=== PATIENT | female | born 1950 | race Caucasian/White ===

== ENCOUNTER 2016-04-21 17:01 | Observation (INO) | payer MEDICARE, OTHER ==
[2016-04-21] MEDS ORDERED: TYLENOL 325 MG PO PRN (17:28)
[2016-04-21] MEDS ORDERED: Phenergan 25 MG INJ IV PRN (17:29)
[2016-04-21] MEDS ORDERED: Colace 100 MG PO PRN (17:30)
[2016-04-21 18:35] LABS: BASOPHIL % 0.1 % (0.0-0.4); Eosinophil % 2.1 % (0.00-5.0); Granulocytes % 61.2 % (36.0-66.0); Lymphocytes % 25.9 % (24.0-44.0); Mean Cell Volume 88.2 fl (78-100); Mean Corpuscular Hemoglobin 29.3 pg (26-32); Mean Platelet Volume 12.5 fl (6-9.5); Monocytes % 10.7 % (0.0-12.0); Platelet Count 126 K/mm3 (150-450); Red Blood Count 4.57 M/mm3 (4.1-5.4); Red Cell Distribution Width 13.1 % (11.5-14.0); White Blood Count 6.7 K/mm3 (4.0-10.5)
[2016-04-21 18:48] LABS: ALBUMIN 3.9 g/dL (3.4-5.0); ALKALINE PHOSPHATASE 83 U/L (46-116); ANION GAP 8.9 MEQ/L (5-15); BILIRUBIN,TOTAL 0.5 mg/dL (0.2-1.0); BLOOD UREA NITROGEN 21 mg/dL (9-20); CHLORIDE 104 mEq/L (98-107); Carbon Dioxide 32.5 mEq/L (21-32); Glucose 97 MG/DL (70-110); SGOT/AST 15 U/L (15-37); SGPT/ALT 16 U/L (12-78); SODIUM 141 mEq/L (136-145); Total Protein 7.3 gm/dL (6.4-8.2)
[2016-04-21 18:50] LABS: TROPONIN < 0.017 ng/ml (0.000-0.056)
--- NOTE | 2016-04-21 20:03 | XRAY ---
Indication: General weakness. Irregular heartbeat. Comparison: November 07, 2007 PA/lateral chest remains clear. Heart and mediastinal structures stable and within normal limits. Bony thorax intact again with osteopenia. Impression: Stable nonacute chest.
[2016-04-21] MEDS: Sodium Chloride 0.9% 1000 ML 1,000 ML IV SCH (21:25)
[2016-04-21] MEDS ORDERED: Zocor 10MG PO SCH (22:00)
[2016-04-21] MEDS ORDERED: DESYREL 50 MG PO SCH (22:00)
[2016-04-22 04:54] LABS: Collection Type CLEAN CATCH
[2016-04-22 04:55] LABS: COMPLETE URINE MICROSCOPIC? NO; Ph 5.5 (5-6)
[2016-04-22] MEDS: Sodium Chloride 0.9% 1000 ML 1,000 ML IV SCH (06:54)
[2016-04-22] MEDS ORDERED: FLUZONE HIGH-DOSE 2016-17 SYR IM ONE (10:00)
[2016-04-22 12:34] VITALS: BP 116/59; PULSE 60; O2SAT 97
[2016-04-22] MEDS ORDERED: PREVNAR 13 SYRINGE IM ONE (14:00)
--- NOTE | 2016-04-22 14:34 | PCM.DCORD ---
- Discharge Discharge Date: 04/22/16 Disposition: Home, Self-Care Condition: Fair Prescriptions: Amox Tr/Potass Clav. 875 mg [Augmentin 875-125 Tablet] 1 each PO BID #20 tablet Medications: Home Medications Atorvastatin Calcium 10 mg PO HS 04/21/16 [Confirmed 04/21/16] Hydrochlorothiazide 12.5 mg PO DAILY 04/21/16 [Confirmed 04/21/16] Lisinopril 10 mg [Zestril 10 MG] 10 mg PO DAILY 04/21/16 [Confirmed ] Trazodone HCl 50 mg [Desyrel 50 mg] 50 mg PO HS 04/21/16 [Confirmed ] Active Inpatient Medications Acetaminophen (Tylenol 325 Mg) 650 mg PO Q4H PRN PRN PRN Reason: TEMP >101 ORALLY Stop: 05/21/16 17:27 Docusate Sodium (Colace 100 Mg) 100 mg PO BID PRN PRN PRN Reason: CONSTIPATION Stop: 05/21/16 17:29 Sodium Chloride (Sodium Chloride 0.9% 1000 Ml) 1,000 mls @ 100 mls/hr IV .Q10H [facility] Stop: 05/21/16 17:29 Last Admin: 04/22/16 06:54 Dose: 100 mls/hr Promethazine HCl (Phenergan 25 Mg Inj) 12.5 mg IV Q6H PRN PRN PRN Reason: NAUSEA/VOMITING Stop: 05/21/16 17:28 Simvastatin (Zocor 10mg) 10 mg PO [facility] Stop: 05/21/16 21:59 Last Admin: 04/21/16 21:24 Dose: 10 mg Trazodone HCl (Desyrel 50 Mg) 50 mg PO [facility] Stop: 05/21/16 21:59 Last Admin: 04/21/16 21:25 Dose: 50 mg Follow up with: JUDY JACKSON [Primary Care Provider] - 1 Week
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
== END 2016-04-22 15:20 | disposition home or self-care (01) ==
LOC: MED SURG 17:01
PROVIDERS: ADMIT Internal Medicine; ATTEND Internal Medicine
DX: R42 Dizziness and giddiness (principal); R00.2 Palpitations; I10 Essential (primary) hypertension; R10.9 Unspecified abdominal pain; Z79.899 Other long term (current) drug therapy; Z23 Encounter for immunization
CPT/HCPCS: 36415; 71020; 80053; 81002; 83880; 84484; 85025; 90662; 90670; 93005; 93268; G0008; G0009; G0378

== ENCOUNTER 2020-05-21 15:58 | Emergency (ER) | payer MEDICARE ==
[2020-05-21] MEDS ORDERED: Sodium Chloride 0.9% 1000 ML 1,000 ML IV STA (16:20)
[2020-05-21] MEDS ORDERED: Zofran 4 MG/2 ML VIAL IV ONE (16:20)
[2020-05-21] MEDS ORDERED: MORPHINE SULFATE 4 MG INJ IV ONE (16:20)
[2020-05-21] MEDS ORDERED: Sodium Chloride 0.9% 1000 ML 1,000 ML ONE (16:29)
[2020-05-21] MEDS ORDERED: Zofran 4 MG/2 ML VIAL ONE (16:29)
[2020-05-21] MEDS ORDERED: MORPHINE SULFATE 4 MG INJ ONE (16:29)
[2020-05-21 16:39] LABS: Absolute Neutrophil Ct (ANC) 5.02 (1.4-6.9); BASOPHIL % 0.4 % (0.0-0.4); Basophil (Absolute #) 0.03 (0-0.4); Eosinophil % 1.8 % (0.00-5.0); Eosinophil (Absolute #) 0.15 (0-0.5); Hematocrit 43.8 % (35-47); Hemoglobin 14.1 gm/dl (12.0-16.0); Lymphocyte (Absolute #) 2.61 (1.0-4.6); Lymphocytes % 30.7 % (24.0-44.0); Mean Corpuscular Hemoglobin 28.7 pg (26-32); Mean Corpuscular Hgb Concent. 32.2 g/dl (32-36); Mean Platelet Volume 11.8 fl (7.5-11.0); Monocytes % 8.2 % (0.0-12.0); Neutrophil % 58.9 % (36.0-66.0); Platelet Count 145 K/mm3 (150-450); Red Blood Count 4.92 M/mm3 (4.1-5.4); Red Cell Distribution Width 13.8 % (11.5-14.0); White Blood Count 8.5 K/mm3 (4.0-10.5)
[2020-05-21 16:50] LABS: Amourphous Crystal FEW /HPF (NEGATIVE); Bacteria MODERATE /HPF (NEGATIVE); Epithelial Cells RARE /HPF (FEW); Mucus SLIGHT /HPF (NEGATIVE); WBC 0-2 /HPF (0-5)
[2020-05-21 16:51] LABS: ALBUMIN 4.4 g/dL (3.5-5.0); ALKALINE PHOSPHATASE 86 U/L (38-126); ANION GAP 11.5 MEQ/L (5-15); BLOOD UREA NITROGEN 25 mg/dL (7-17); CHLORIDE 104 mmol/L (98-107); Calcium 10.1 mg/dL (8.4-10.2); Carbon Dioxide 28 mmol/L (22-30); Creatinine 1 0.82 mg/dL (0.52-1.04); EST GLOMERULAR FILTRATION RATE > 60.0 ML/MIN; Glucose 128 mg/dL (74-106); LIPASE 316 U/L (23-300); Potassium 3.9 mmol/L (3.5-5.1); SGOT/AST 29 U/L (14-36); SGPT/ALT 15 U/L (0-35); SODIUM 139 mmol/L (137-145); Total Protein 7.5 g/dL (6.3-8.2)
[2020-05-21 16:53] LABS: Appearance VERY CLOUDY (CLEAR); RBC >101 /HPF (0-2)
[2020-05-21 16:54] LABS: Bilirubin NEGATIVE (NEGATIVE); Blood LARGE Ery/ul (0-5); Glucose NEGATIVE (NEGATIVE); Ketones NEGATIVE (NEGATIVE); Leukocyte Esterase NEGATIVE (NEGATIVE); Nitrite NEGATIVE (NEGATIVE); Urobilinogen 0.2 mg/dL (0-1)
--- NOTE | 2020-05-21 16:54 | ERPHSYRPT ---
- History of Present Illness Time Seen by Provider: 05/21/20 16:00 Historian: patient Exam Limitations: no limitations Patient Subjective Stated Complaint: PT states "I have lower left abdominal pain since 10 am this morning it went then eased up." Triage Nursing Assessment: Pt presented alert and oriented X 3, skin pwd Pt ambulates with an upright steady gait, able to speak in clear full setences. pt holding her left lower abdomen. Physician History: 70 years old female presented in the ER with chief complaint of left lower quadrant pain off and on since morning. Patient report pain started around 10 AM today, lasted for few minutes and improved moderate to severe intensity without any significant aggravating or relieving factors. Prior to arrival she had another episode of similar pain but this time was worse and started to improve on the way to the ER with current severity 09/23. Also report mild radiation to left lower back/flank area with associated nausea but no vomiting. Denies any difficulty urination/hematuria/dysuria or increased frequency. Denies any history of kidney stones. Does have a remote history of diverticulitis. No fever or chills reported. Denies constipation or diarrhea. Timing/Duration: today, intermittent, sudden, improved Activities at Onset: rest Quality: sharpness Abdominal Pain Onset Location: LLQ Pain Radiation: back Severity of Pain-Max: severe Severity of Pain-Current: moderate Modifying Factors: Improves With: nothing Associated Symptoms: nausea, No vomiting Allergies/Adverse Reactions: No Known Drug Allergies Allergy (Verified 05/21/20 16:14) Home Medications: Atorvastatin Calcium 10 mg PO HS 04/21/16 [History] Trazodone HCl 50 mg [Desyrel 50 mg] 50 mg PO HS 04/21/16 [History] Amlodipine Besylate [Norvasc] 2.5 mg PO DAILY 05/21/20 [History] Bisoprolol Fumarate 5 mg PO DAILY 05/21/20 [History] Hx Tetanus, Diphtheria Vaccination/Date Given: No Hx Influenza Vaccination/Date Given: No Hx Pneumococcal Vaccination/Date Given: No Immunizations Up to Date: Yes Travel Risk - International Travel Have you traveled outside of the country in past 3 weeks: No - Coronavirus Screening Are you exhibiting any of the following symptoms?: No Close contact with a COVID-19 positive Pt in past 14-21 Days: No - Review of Systems Constitutional: No Symptoms Eyes: No Symptoms Ears, Nose, & Throat: No Symptoms Respiratory: No Symptoms Cardiac: No Symptoms Abdominal/Gastrointestinal: Abdominal Pain, Nausea Genitourinary Symptoms: No Symptoms Musculoskeletal: No Symptoms Skin: No Symptoms Neurological: No Symptoms Psychological: No Symptoms Endocrine: No Symptoms Hematologic/Lymphatic: No Symptoms Immunological/Allergic: No Symptoms - Past Medical History Pertinent Past Medical History: Yes Neurological History: No Pertinent History ENT History: No Pertinent History Cardiac History: High Cholesterol, Hypertension, Other Respiratory History: No Pertinent History Endocrine Medical History: No Pertinent History Musculoskeletal History: Osteoarthritis GI Medical History: Other History: No Pertinent History Psycho-Social History: No Pertinent History Female Reproductive Disorders: No Pertinent History Other Medical History: HX FX RIGHT WRIST WITH SURGERY TO REMOVE FRAGMENTS 12 YEARS AGO. SX HX: HYSTERECTOMY, CHOLECYSTECTOMY, RECTOCELE/CYSTOCELE RECONS TRUCTION, APPENDECTOMY - Past Surgical History Past Surgical History: Yes Neuro Surgical History: No Pertinent History Cardiac: No Pertinent History Respiratory: No Pertinent History Gastrointestinal: Appendectomy, Other Genitourinary: Other Musculoskeletal: Orthopedic Surgery Female Surgical History: Hysterectomy Other Surgical History: right wrist surgery, rectocele, cystocele - Social History Smoking Status: Never smoker Exposure to second hand smoke: Yes Drug Use: none Patient Lives Alone: No - Female History Hx Now: No - Nursing Vital Signs Nursing Vital Signs: Initial Vital Signs Temperature 98.0 F 05/21/20 16:08 Pulse Rate 57 L 05/21/20 16:08 Respiratory Rate 20 05/21/20 16:08 Blood Pressure 160/98 05/21/20 16:08 O2 Sat by Pulse Oximetry 95 05/21/20 16:08 Pain Scale Pain Intensity 3 - Physical Exam General Appearance: no apparent distress, alert Eye Exam: eyes nml inspection Ears, Nose, Throat Exam: normal ENT inspection, pharynx normal Neck Exam: normal inspection, non-tender, supple, full range of motion Respiratory Exam: normal breath sounds, lungs clear Cardiovascular Exam: regular rate/rhythm, normal heart sounds Gastrointestinal/Abdomen Exam: soft, tenderness, guarding (Left lower quadrant) Back Exam: normal inspection, normal range of motion, No CVA tenderness, No vertebral tenderness, No point tenderness Extremity Exam: normal inspection, normal range of motion, pelvis stable Neurologic Exam: alert, oriented x 3, cooperative Skin Exam: normal color SpO2 Interpretation: normal SpO2: 95 O2 Delivery: Room Air Ordered Tests: Active Orders 24 hr Category Date Time Status IV Insertion STAT Care 05/21/20 16:20 Active NPO (ED) STAT Care 05/21/20 16:20 Active ABDOMEN AND PELVIS W CONTRAST [CT] Stat Exams 05/21/20 16:20 Taken CBC W DIFF Stat Lab 05/21/20 16:15 Completed CMP Stat Lab 05/21/20 16:15 Completed CULTURE,URINE Stat Lab 05/21/20 16:23 Received LIPASE Stat Lab 05/21/20 16:15 Completed UA W/RFX UR CULTURE Stat Lab 05/21/20 16:23 Completed Medication Summary Discontinued Medications Generic Name Dose Route Start Last Admin Trade Name Freq PRN Reason Stop Dose Admin Sodium Chloride 1,000 mls @ 499 mls/hr 05/21/20 16:20 05/21/20 16:31 Sodium Chloride 0.9% 1000 Ml IV 05/21/20 18:20 499 mls/hr .Q2H1M STA Administration Sodium Chloride Confirm 05/21/20 16:29 Sodium Chloride 0.9% 1000 Ml Administered 05/21/20 16:30 Dose 1,000 mls @ ud .ROUTE .STK-MED ONE Morphine Sulfate 4 mg 05/21/20 16:20 05/21/20 16:31 Morphine Sulfate 4 Mg Inj IV 05/21/20 16:21 4 mg STAT ONE Administration Morphine Sulfate Confirm 05/21/20 16:29 Morphine Sulfate 4 Mg Inj Administered 05/21/20 16:30 Dose 4 mg .ROUTE .STK-MED ONE Ondansetron HCl 4 mg 05/21/20 16:20 05/21/20 16:31 Zofran 4 Mg/2 Ml Vial IV 05/21/20 16:21 4 mg STAT ONE Administration Ondansetron HCl Confirm 05/21/20 16:29 Zofran 4 Mg/2 Ml Vial Administered 05/21/20 16:30 Dose 4 mg .ROUTE .STK-MED ONE Lab/Rad Data: Laboratory Result Diagrams 05/21/20 16:15 05/21/20 16:15 Laboratory Results 05/21/20 05/21/20 05/21/20 Range/Units 16:23 16:15 16:15 WBC 8.5 (4.0-10.5) K/mm3 RBC 4.92 (4.1-5.4) M/mm3 Hgb 14.1 (12.0-16.0) gm/dl Hct 43.8 (35-47) % MCV 89.0 (78-100) fl MCH 28.7 (26-32) pg MCHC 32.2 (32-36) g/dl RDW 13.8 (11.5-14.0) % Plt Count 145 L (150-450) K/mm3 MPV 11.8 H (7.5-11.0) fl Gran % 58.9 (36.0-66.0) % Eos # (Auto) 0.15 (0-0.5) Absolute Lymphs (auto) 2.61 (1.0-4.6) Absolute Monos (auto) 0.70 (0.0-1.3) Lymphocytes % 30.7 (24.0-44.0) % Monocytes % 8.2 (0.0-12.0) % Eosinophils % 1.8 (0.00-5.0) % Basophils % 0.4 (0.0-0.4) % Absolute Granulocytes 5.02 (1.4-6.9) Basophils # 0.03 (0-0.4) Sodium 139 (137-145) mmol/L Potassium 3.9 (3.5-5.1) mmol/L Chloride 104 (98-107) mmol/L Carbon Dioxide 28 (22-30) mmol/L Anion Gap 11.5 (5-15) MEQ/L BUN 25 H (7-17) mg/dL Creatinine 0.82 (0.52-1.04) mg/dL Estimated GFR > 60.0 ML/MIN Glucose 128 H (74-106) mg/dL Calcium 10.1 (8.4-10.2) mg/dL Total Bilirubin 0.40 (0.2-1.3) mg/dL AST 29 (14-36) U/L ALT 15 (0-35) U/L Alkaline Phosphatase 86 (38-126) U/L Serum Total Protein 7.5 (6.3-8.2) g/dL Albumin 4.4 (3.5-5.0) g/dL Lipase 316 H (23-300) U/L Urine Color ASAD (YELLOW) Urine Appearance VERY CLOUDY (CLEAR) Urine pH 5.0 (5-6) Ur Specific [place] 1.030 (1.005-1.025) Urine Protein 30 mg/dL (Negative) Urine Ketones NEGATIVE (NEGATIVE) Urine Blood LARGE (0-5) Charles/ul Urine Nitrite NEGATIVE (NEGATIVE) Urine Bilirubin NEGATIVE (NEGATIVE) Urine Urobilinogen 0.2 (0-1) mg/dL Ur Leukocyte Esterase NEGATIVE (NEGATIVE) Urine WBC (Auto) 0-2 (0-5) /HPF Urine RBC (Auto) >101 (0-2) /HPF U Epithel Cells (Auto) RARE (FEW) /HPF Urine Bacteria (Auto) MODERATE (NEGATIVE) /HPF Calcium Oxalate Crystal 11-25 (NEGATIVE) /HPF Amorphous Crystals FEW (NEGATIVE) /HPF Urine Mucus (Auto) SLIGHT (NEGATIVE) /HPF Urine Culture Reflexed YES (NO) Urine Glucose NEGATIVE (NEGATIVE) mg/dL - Progress Progress: improved, re-examined Progress Note: 05/21/20 18:23 70 years old is evaluated for left flank/left lower quadrant pain. She is given IV fluid and pain medications, on reevaluation her pain is much improved. She has a normal white count, grossly unremarkable chemistries. CT abdomen pelvis showed left UPJ 4.5 mm stone with some hydronephrosis but no obvious obstruction. She does not have fever. I have given her Flomax and a dose of Cipro in here. I have discussed with patient about observation admission versus going home and she wants to go home on pain medication. I have discussed with Dr. Spencer at [facility], agreed with outpatient management and patient would be evaluated in the clinic on Sunday morning. Plan discussed with patient who understand and agrees with it. Discussed with Dr.: Other ( urologist [facility]) Counseled pt/family regarding: lab results, diagnosis, need for follow-up, rad results - Departure Departure Disposition: Home Clinical Impression: Ureterolithiasis Condition: Stable Critical Care Time: No Referrals: ABEL NIELSON MD [Primary Care Provider] - Follow Up with PCP/3 days LISA WHEELER MD [NON-STAFF PHY W/O PRIVILEGES] - ( 05/24/20 call radiology manager for appointment) Instructions: Acute Abdomen (Belly Pain), Adult (DC), Kidney Stones (DC) Additional Instructions: Drink plenty of fluids. Take pain medications as needed. Follow-up with urology for reevaluation early Sunday morning. Return to ER for intractable pain/vomiting or if develop fever chills/difficulty urination etc. Prescriptions: Oxycodone HCl/Acetaminophen [Percocet 5-325 mg Tablet] 1 each PO Q6H PRN PRN #12 tablet MDD 4 PRN Reason: Pain Ciprofloxacin [Cipro 500 MG] 500 mg PO BID #14 tablet Tamsulosin HCl 0.4 mg [Flomax 0.4 MG] 0.4 mg PO DAILY 30 Days #30 cap
[2020-05-21] MEDS ORDERED: Flomax 0.4 MG PO STA (18:21)
[2020-05-21] MEDS ORDERED: Cipro 500 MG PO STA (18:22)
[2020-05-21] MEDS ORDERED: Flomax 0.4 MG ONE (18:29)
[2020-05-21] MEDS ORDERED: Cipro 500 MG ONE (18:29)
[2020-05-21 18:56] VITALS: BP 151/82; PULSE 64; O2SAT 98
--- NOTE | 2020-05-21 21:56 | XRAY ---
Indication: Left lower quadrant pain. Nausea. Elevated lipase. Multiple contiguous axial images obtained through the abdomen and pelvis using 80 cc Isovue 370 contrast. Comparison: February 19, 2012. Lung bases again demonstrates scattered fibrosis/scarring and right posterior gutter calcified granuloma. No infiltrate or effusion. Heart is not enlarged. Stomach is mildly distended with food. Noncontrasted stomach and bowel loops appear nonobstructed. There remains descending/sigmoid diverticulosis, appendectomy, hysterectomy, and hepatic/splenic calcified granulomas. Also previous cholecystectomy with prominent biliary tree. No free fluid/air. New 4-5 mm proximal left ureter calculus, approximately L3 level. Mild left hydronephrosis consistent with partial obstructive uropathy. No perinephric fluid. New 5 mm right upper and left mid renal cortical cysts. Remaining liver, pancreas, spleen, adrenal glands, kidneys, ureters, and bladder appear unremarkable. Mild aortic calcifications. No AAA or pathologic retroperitoneal lymphadenopathy. Osseous structures intact again with mild degenerative changes throughout the spine. Impression: 1. New 4-5 mm proximal left ureter calculus producing partial obstruction. New bilateral renal cysts. 2. Again incidental colonic diverticulosis, chronic bony findings, and old granulomatous disease. Comment: Preliminary interpretation was made by [facility]. No critical discrepancy.
== END 2020-05-21 18:45 | disposition home or self-care (01) ==
LOC: ED 15:58
DX: N20.1 Calculus of ureter (principal); R10.32 Left lower quadrant pain; R10.9 Unspecified abdominal pain; R11.0 Nausea; E78.00 Pure hypercholesterolemia, unspecified; I10 Essential (primary) hypertension; Z79.899 Other long term (current) drug therapy
CPT/HCPCS: 36000; 36415; 74177; 80053; 81001; 83690; 85025; 87086; 96374; 96375; 99284; J2270; J2405; A9270-GY

== ENCOUNTER 2020-07-05 10:18 | Emergency (ER) | payer MEDICARE ==
[2020-07-05] MEDS ORDERED: TORAdol 30 mg Injection IV ONE (11:27)
[2020-07-05] MEDS ORDERED: TORAdol 30 mg Injection ONE (11:31)
[2020-07-05 11:35] LABS: Absolute Neutrophil Ct (ANC) 5.36 (1.4-6.9); BASOPHIL % 0.3 % (0.0-0.4); Basophil (Absolute #) 0.02 (0-0.4); Eosinophil % 1.2 % (0.00-5.0); Eosinophil (Absolute #) 0.09 (0-0.5); Hematocrit 43.5 % (35-47); Hemoglobin 14.1 gm/dl (12.0-16.0); Lymphocyte (Absolute #) 1.45 (1.0-4.6); Lymphocytes % 19.5 % (24.0-44.0); Mean Cell Volume 88.4 fl (78-100); Mean Corpuscular Hemoglobin 28.7 pg (26-32); Mean Corpuscular Hgb Concent. 32.4 g/dl (32-36); Mean Platelet Volume 12.5 fl (7.5-11.0); Monocyte (Absolute #) 0.52 (0.0-1.3); Platelet Count 121 K/mm3 (150-450); Red Blood Count 4.92 M/mm3 (4.1-5.4); Red Cell Distribution Width 13.8 % (11.5-14.0); White Blood Count 7.4 K/mm3 (4.0-10.5)
[2020-07-05 11:36] VITALS: O2SAT 95
[2020-07-05 11:39] LABS: ALBUMIN 4.4 g/dL (3.5-5.0); ALKALINE PHOSPHATASE 81 U/L (38-126); AMYLASE 115 U/L (30-110); ANION GAP 13.7 MEQ/L (5-15); BLOOD UREA NITROGEN 31 mg/dL (7-17); CHLORIDE 104 mmol/L (98-107); Calcium 9.7 mg/dL (8.4-10.2); Carbon Dioxide 28 mmol/L (22-30); Creatinine 1 0.77 mg/dL (0.52-1.04); EST GLOMERULAR FILTRATION RATE > 60.0 ML/MIN; Glucose 129 mg/dL (74-106); LIPASE 227 U/L (23-300); Potassium 3.5 mmol/L (3.5-5.1); SGOT/AST 26 U/L (14-36); SGPT/ALT 14 U/L (0-35); SODIUM 142 mmol/L (137-145); Total Protein 7.4 g/dL (6.3-8.2)
[2020-07-05 11:40] LABS: Appearance SLIGHTLY CLOUDY (CLEAR); Bilirubin NEGATIVE (NEGATIVE); Blood LARGE Ery/ul (0-5); Glucose NEGATIVE (NEGATIVE); Ketones NEGATIVE (NEGATIVE); Leukocyte Esterase NEGATIVE (NEGATIVE); Mucus SLIGHT /HPF (NEGATIVE); Nitrite NEGATIVE (NEGATIVE); Protein,Urine Dip 30 (Negative); Specific Gravity 1.017 (1.005-1.025); Urobilinogen NEGATIVE mg/dL (0-1)
[2020-07-05 11:42] LABS: RBC >101 /HPF (0-2)
--- NOTE | 2020-07-05 12:02 | XRAY ---
Indication: Left flank pain. History kidney stones. Multiple contiguous images obtained through the abdomen and pelvis without contrast using renal stone protocol. Comparison: May 21, 2020. Lung bases again demonstrate scattered fibrosis/scarring and right posterior gutter calcified granuloma. Heart is not enlarged. There is again a 4-5 mm proximal left ureteral calculus now seen approximately L4 level, previously L3. Slight worsening moderate left sided hydronephrosis with new mild perinephric stranding favoring high-grade obstructive uropathy. Right kidney negative for renal calculus or evidence for obstructive uropathy. Noncontrasted stomach and bowel loops remain nonobstructed again with scattered colonic diverticulosis and appendectomy. Stable cholecystectomy, hysterectomy, and hepatic/splenic calcified granulomas. Remaining liver, pancreas, spleen, adrenal glands, kidneys, ureters, and bladder appear unremarkable for noncontrast exam. Impression: 1. Again 4-5 mm proximal left ureteral calculus with worsening obstructive uropathy as detailed. 2. Again incidental colonic diverticulosis and old granulomatous disease.
[2020-07-05 12:09] VITALS: BP 143/72; PULSE 57
--- NOTE | 2020-07-05 12:22 | ERPHSYRPT ---
- History of Present Illness Historian: patient Patient Subjective Stated Complaint: Left sided abdominal/flank pain Triage Nursing Assessment: Patient ambulated back to ED and transferred self to bed. Patient A+O X3. Patient's skin pink, warm and dry. Patient complains of left sided abdominal/flank pain intermittetn sharp pain 5/10. Patient complains of N/V and dizziness. Abdomen soft and round with BS X 4. Physician History: 70 yo wf w L flank pain x 4 hours rated a 5/10 and described as stabbing. She has h/o recent L ureterolithiasis, and describes her pain as the same. Pt has had N/V wo hematuria/dysuria/fever/diarrhea/chest pain/fever. Timing/Duration: hour(s) (4 hours) Activities at Onset: rest Quality: stabbing Abdominal Pain Onset Location: flank Pain Radiation: no radiation Severity of Pain-Max: moderate Severity of Pain-Current: moderate Modifying Factors: Improves With: nothing Associated Symptoms: nausea, vomiting, No back, No chest pain, No diaphoresis, No diarrhea, No fever/chills, No fatigue, No headache, No heartburn, No loss of appetite, No neck pain, No rash, No shortness of breath, No syncope, No weakness Previous symptoms: same symptoms as today Allergies/Adverse Reactions: No Known Drug Allergies Allergy (Verified 07/05/20 10:27) Home Medications: Atorvastatin Calcium 10 mg PO HS 04/21/16 [History] Trazodone HCl 50 mg [Desyrel 50 mg] 50 mg PO HS 04/21/16 [History] Amlodipine Besylate [Norvasc] 2.5 mg PO DAILY 05/21/20 [History] Bisoprolol Fumarate 5 mg PO DAILY 05/21/20 [History] Hx Tetanus, Diphtheria Vaccination/Date Given: No Hx Influenza Vaccination/Date Given: No Hx Pneumococcal Vaccination/Date Given: No Immunizations Up to Date: Yes Travel Risk - International Travel Have you traveled outside of the country in past 3 weeks: No - Coronavirus Screening Are you exhibiting any of the following symptoms?: No Close contact with a COVID-19 positive Pt in past 14-21 Days: No - Review of Systems Constitutional: No Symptoms Eyes: No Symptoms Ears, Nose, & Throat: No Symptoms Respiratory: No Symptoms Cardiac: No Symptoms Abdominal/Gastrointestinal: Abdominal Pain (L Flank), Nausea, Vomiting Genitourinary Symptoms: Flank Pain, No Dysuria, No Frequency, No Hematuria, No Hesitancy, No Incontinence, No Urgency, No Urinary Retention Musculoskeletal: No Symptoms Skin: No Symptoms Neurological: No Symptoms Psychological: No Symptoms Endocrine: No Symptoms Hematologic/Lymphatic: No Symptoms Immunological/Allergic: No Symptoms - Past Medical History Pertinent Past Medical History: Yes Neurological History: No Pertinent History ENT History: No Pertinent History Cardiac History: High Cholesterol, Hypertension, Other Respiratory History: No Pertinent History Endocrine Medical History: No Pertinent History Musculoskeletal History: Osteoarthritis GI Medical History: Other History: No Pertinent History Psycho-Social History: No Pertinent History Female Reproductive Disorders: No Pertinent History Other Medical History: HX FX RIGHT WRIST WITH SURGERY TO REMOVE FRAGMENTS 12 YEARS AGO. SX HX: HYSTERECTOMY, CHOLECYSTECTOMY, RECTOCELE/CYSTOCELE RECONSTRUCTION, APPENDECTOMY - Past Surgical History Past Surgical History: Yes Neuro Surgical History: No Pertinent History Cardiac: No Pertinent History Respiratory: No Pertinent History Gastrointestinal: Appendectomy, Other Genitourinary: Other Musculoskeletal: Orthopedic Surgery Female Surgical History: Hysterectomy Other Surgical History: right wrist surgery, rectocele, cystocele - Social History Smoking Status: Never smoker Exposure to second hand smoke: Yes Drug Use: none Patient Lives Alone: No Significant Family History: no pertinent family hx - Female History Hx Now: No - Nursing Vital Signs Nursing Vital Signs: Initial Vital Signs Temperature 97.7 F 07/05/20 10:28 Pulse Rate 54 L 07/05/20 10:28 Respiratory Rate 18 07/05/20 10:28 Blood Pressure 166/84 07/05/20 10:28 O2 Sat by Pulse Oximetry 96 07/05/20 10:28 Pain Scale Pain Intensity 0 - Physical Exam General Appearance: no apparent distress Eye Exam: PERRL/EOMI, eyes nml inspection Ears, Nose, Throat Exam: normal ENT inspection, TMs normal, pharynx normal, moist mucous membranes Neck Exam: normal inspection, non-tender, supple, full range of motion, No meningismus, No mass, No Brudzinski, No Kernig's Respiratory Exam: airway intact, crackles/rales (Faint Rales bases B), No respiratory distress Cardiovascular Exam: bradycardia (Mild bradycardia wo Murmur) Gastrointestinal/Abdomen Exam: soft, normal bowel sounds, No tenderness, No distention, No mass, No guarding, No ecchymosis, No pulsatile mass, No rebound Back Exam: CVA tenderness (Mild Left), No vertebral tenderness, No rash, No decreased range of motion Extremity Exam: normal inspection, normal range of motion Neurologic Exam: alert, oriented x 3, cooperative, 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, normal mood/affect, sensation nml, No motor deficits, No sensory deficit Skin Exam: normal color Lymphatic Exam: adenopathy SpO2 Interpretation: normal SpO2: 95 O2 Delivery: Room Air - Course Nursing assessment & vital signs reviewed: Yes - CT Exams Abdomen/Pelvis CT Interpretation: Discussed w/radiologist (4-5mm L proximal ureteral calculus w mod hydro) Ordered Tests: Active Orders 24 hr Category Date Time Status ABDOMEN AND PELVIS W/0 CONTRAS [CT] Stat Exams 07/05/20 11:29 Completed AMYLASE Stat Lab 07/05/20 10:55 Completed CBC W DIFF Stat Lab 07/05/20 10:55 Completed CMP Stat Lab 07/05/20 10:55 Completed CULTURE,URINE Stat Lab 07/05/20 11:31 Received LIPASE Stat Lab 07/05/20 10:55 Completed UA W/RFX UR CULTURE Stat Lab 07/05/20 11:31 Completed Medication Summary Discontinued Medications Generic Name Dose Route Start Last Admin Trade Name Desirae PRN Reason Stop Dose Admin Ketorolac Tromethamine 15 mg 07/05/20 11:27 07/05/20 11:32 Toradol 30 Mg Injection IV 07/05/20 11:28 15 mg STAT ONE Administration Ketorolac Tromethamine Confirm 07/05/20 11:31 Toradol 30 Mg Injection Administered 07/05/20 11:32 Dose 30 mg .ROUTE .Eviti-MED ONE Lab/Rad Data: Laboratory Result Diagrams 07/05/20 10:55 07/05/20 10:55 Laboratory Results 07/05/20 07/05/20 07/05/20 Range/Units 11:31 10:55 10:55 WBC (4.0-10.5) K/mm3 RBC (4.1-5.4) M/mm3 Hgb (12.0-16.0) gm/dl Hct (35-47) % MCV (78-100) fl MCH (26-32) pg MCHC (32-36) g/dl RDW (11.5-14.0) % Plt Count (150-450) K/mm3 MPV (7.5-11.0) fl Gran % (36.0-66.0) % Eos # (Auto) (0-0.5) Absolute Lymphs (auto) (1.0-4.6) Absolute Monos (auto) (0.0-1.3) Lymphocytes % (24.0-44.0) % Monocytes % (0.0-12.0) % Eosinophils % (0.00-5.0) % Basophils % (0.0-0.4) % Absolute Granulocytes (1.4-6.9) Basophils # (0-0.4) Sodium 142 (137-145) mmol/L Potassium 3.5 (3.5-5.1) mmol/L Chloride 104 (98-107) mmol/L Carbon Dioxide 28 (22-30) mmol/L Anion Gap 13.7 (5-15) MEQ/L BUN 31 H (7-17) mg/dL Creatinine 0.77 (0.52-1.04) mg/dL Estimated GFR > 60.0 ML/MIN Glucose 129 H (74-106) mg/dL Calcium 9.7 (8.4-10.2) mg/dL Total Bilirubin 0.50 (0.2-1.3) mg/dL AST 26 (14-36) U/L ALT 14 (0-35) U/L Alkaline Phosphatase 81 (38-126) U/L Troponin 0.01 (0.00-0.03) ng/mL Serum Total Protein 7.4 (6.3-8.2) g/dL Albumin 4.4 (3.5-5.0) g/dL Amylase 115 H (30-110) U/L Lipase 227 (23-300) U/L Urine Color YELLOW (YELLOW) Urine Appearance SLIGHTLY CLOUDY (CLEAR) Urine pH 7.0 (5-6) Ur Specific Newell 1.017 (1.005-1.025) Urine Protein 30 (Negative) Urine Ketones NEGATIVE (NEGATIVE) Urine Blood LARGE (0-5) Charles/ul Urine Nitrite NEGATIVE (NEGATIVE) Urine Bilirubin NEGATIVE (NEGATIVE) Urine Urobilinogen NEGATIVE (0-1) mg/dL Ur Leukocyte Esterase NEGATIVE (NEGATIVE) Urine WBC (Auto) 3-5 (0-5) /HPF Urine RBC (Auto) >101 (0-2) /HPF U Epithel Cells (Auto) NONE (FEW) /HPF Urine Bacteria (Auto) NONE (NEGATIVE) /HPF Urine Mucus (Auto) SLIGHT (NEGATIVE) /HPF Urine Culture Reflexed YES (NO) Urine Glucose NEGATIVE (NEGATIVE) mg/dL 07/05/20 Range/Units 10:55 WBC 7.4 (4.0-10.5) K/mm3 RBC 4.92 (4.1-5.4) M/mm3 Hgb 14.1 (12.0-16.0) gm/dl Hct 43.5 (35-47) % MCV 88.4 (78-100) fl MCH 28.7 (26-32) pg MCHC 32.4 (32-36) g/dl RDW 13.8 (11.5-14.0) % Plt Count 121 L (150-450) K/mm3 MPV 12.5 H (7.5-11.0) fl Gran % 72.0 H (36.0-66.0) % Eos # (Auto) 0.09 (0-0.5) Absolute Lymphs (auto) 1.45 (1.0-4.6) Absolute Monos (auto) 0.52 (0.0-1.3) Lymphocytes % 19.5 L (24.0-44.0) % Monocytes % 7.0 (0.0-12.0) % Eosinophils % 1.2 (0.00-5.0) % Basophils % 0.3 (0.0-0.4) % Absolute Granulocytes 5.36 (1.4-6.9) Basophils # 0.02 (0-0.4) Sodium (137-145) mmol/L Potassium (3.5-5.1) mmol/L Chloride (98-107) mmol/L Carbon Dioxide (22-30) mmol/L Anion Gap (5-15) MEQ/L BUN (7-17) mg/dL Creatinine (0.52-1.04) mg/dL Estimated GFR ML/MIN Glucose (74-106) mg/dL Calcium (8.4-10.2) mg/dL Total Bilirubin (0.2-1.3) mg/dL AST (14-36) U/L ALT (0-35) U/L Alkaline Phosphatase (38-126) U/L Troponin (0.00-0.03) ng/mL Serum Total Protein (6.3-8.2) g/dL Albumin (3.5-5.0) g/dL Amylase (30-110) U/L Lipase (23-300) U/L Urine Color (YELLOW) Urine Appearance (CLEAR) Urine pH (5-6) Ur Specific Newell (1.005-1.025) Urine Protein (Negative) Urine Ketones (NEGATIVE) Urine Blood (0-5) Charles/ul Urine Nitrite (NEGATIVE) Urine Bilirubin (NEGATIVE) Urine Urobilinogen (0-1) mg/dL Ur Leukocyte Esterase (NEGATIVE) Urine WBC (Auto) (0-5) /HPF Urine RBC (Auto) (0-2) /HPF U Epithel Cells (Auto) (FEW) /HPF Urine Bacteria (Auto) (NEGATIVE) /HPF Urine Mucus (Auto) (NEGATIVE) /HPF Urine Culture Reflexed (NO) Urine Glucose (NEGATIVE) mg/dL - Progress Progress: improved Progress Note: 07/05/20 12:25 Pain much improved w 15mg IV Toradol Counseled pt/family regarding: lab results, diagnosis, need for follow-up, rad results - Departure Departure Disposition: Home Clinical Impression: Ureterolithiasis Condition: Stable Critical Care Time: No Referrals: ABEL NIELSON MD [Primary Care Provider] - Instructions: Kidney Stones (DC) Additional Instructions: Strain all urine Fluids Pain meds as needed Follow up with your urologist Return to ER for increasing pain or temperature greater ythan 100.5 Prescriptions: Hydrocodone/Acetaminophen [Hydrocodone-Acetamin 10-325 mg] 1 tablet PO Q4H PRN PRN #6 tablet MDD 4 PRN Reason: Pain
== END 2020-07-05 12:40 | disposition home or self-care (01) ==
LOC: ED 10:18
DX: N20.1 Calculus of ureter (principal); Z79.899 Other long term (current) drug therapy; I10 Essential (primary) hypertension; E78.00 Pure hypercholesterolemia, unspecified
CPT/HCPCS: 36415; 74176; 80053; 81001; 82150; 83690; 84484; 85025; 87086; 96374; 99284; J1885

== ENCOUNTER 2023-05-16 05:55 | Day surgery (SDC) | payer MEDICARE ==
[2023-05-16] MEDS ORDERED: Lactated Ringers 1,000 ML IV SCH (06:30)
[2023-05-16 06:40] VITALS: RESP 18
[2023-05-16] MEDS ORDERED: DIPRIVAN 200 MG/20 ML IV ONE ×2 (07:13→08:03)
[2023-05-16 08:43] VITALS: O2SAT 97
--- NOTE | 2023-05-16 08:46 | OP ---
SURGERY DATE/TIME: 05/16/2023 0737 PREOPERATIVE DIAGNOSIS: Positive Cologuard. POSTOPERATIVE DIAGNOSES: 1) Descending colon polyp. 2) Diverticulosis. PROCEDURE: Colonoscopy. SURGEON: Aidan Valdez M.D. ANESTHESIA: MAC by Andreas Ochoa CRNA. ESTIMATED BLOOD LOSS: Minimal. SPECIMENS: Hot forceps polypectomy from descending colon polyp x1. DESCRIPTION OF PROCEDURE: After informed written consent was obtained, the patient was taken to the endoscopy suite. She was placed in left lateral decubitus position and anesthesia was titrated to desired level of consciousness. Digital rectal exam showed normal sphincter tone and no internal lesions. The scope was inserted into the rectum and sequentially the entire colonic mucosa was traversed. The level of cecum was reached and verified with direct visualization of the ileocecal valve. Upon withdrawal there was scattered diverticula throughout most of the length of the colon with no bleeding or other suspicious abnormalities. There was a small sessile polyp in the descending colon which was grasped with forceps, cauterized and removed in its entirety. The area was hemostatic following removal of the polyp. The remainder of the exam was unremarkable. Prep was note to be fair. Prior to withdrawal, retroflexion showed no internal lesions. The scope was removed. The patient was transferred to the recovery room in good condition.
[2023-05-16 08:55] VITALS: BP 143/68; PULSE 54; TEMP 97
== END 2023-05-16 09:06 | disposition home or self-care (01) ==
LOC: SDC 05:55
PROVIDERS: ATTEND Family Medicine
DX: D12.4 Benign neoplasm of descending colon (principal); R19.5 Other fecal abnormalities; K57.30 Diverticulosis of large intestine without perforation or abscess without bleeding
CPT/HCPCS: 93005; 99100; J2704

== ENCOUNTER 2024-11-04 10:15 | Emergency (ER) | payer MEDICARE ==
[2024-11-04 10:38] VITALS: TEMP 98.9
[2024-11-04 10:54] LABS: VBG BASE EXCESS 3.2 (-2.0-2.0); VBG CARBOXYHEMOGLOBIN 2.7 % T HGB (0.0-6.9); VBG FIO2 21.0 %; VBG HCO3- 26.9 meq/L (22-28); VBG HEMOGLOBIN 13.2; VBG O2 SATURATION 97.3 (95-100); VBG PCO2 37.0 mm/Hg (42-55); VBG PO2 150.0 mm/Hg (25-40); VBG POTASSIUM 3.5 (3.5-5.1)
--- NOTE | 2024-11-04 11:04 | ERPHSYRPT ---
- History of Present Illness Source: patient Exam Limitations: no limitations Patient Subjective Stated Complaint: patient has had increased sob since this past sunday, patient stated she has pulmonary fibrosis, patient states she also has an earache that started the same day Triage Nursing Assessment: patient presents to Ed with complaints of SOB, patient has crakles throughout all lobes, patient's oxygen upon arrival on room air was 90%, placed patient on 3 L via nasal cannula with oxygen at 97%, all other vitals WNL, skin N/W/D Physician History: Patient has a history of cough and fever. She is feeling a bit short of breath 2. Symptoms started about 3 days ago. They have gotten little bit worse. She also had some ear pain which started about the same time. The ear pain is sharp and stabbing it comes on intermittently and is very painful. Patient has a history of pulmonary fibrosis. She took some Tylenol and Advil and that knocked her temperature down to about normal levels. She was running around 102 at home she said. She went to urgent care and they sent her in here. Cough has been nonproductive.Exertion makes her shortness of breath worse nothing only makes it better. She has no other complaints at this time. Allergies/Adverse Reactions: gluten Adverse Reaction (Verified 11/04/24 10:49) lactose Adverse Reaction (Verified 11/04/24 10:49) Home Medications: Atorvastatin Calcium 10 mg PO HS 04/21/16 [History] Trazodone HCl 50 mg [Desyrel 50 mg] 50 mg PO HS 04/21/16 [History] Amlodipine Besylate [Norvasc] 2.5 mg PO DAILY 05/21/20 [History] Bisoprolol Fumarate 5 mg PO DAILY 05/21/20 [History] Acetaminophen [Tylenol] 325 mg PO DAILY PRN PRN 10/26/22 [History] Albuterol 2 mg/5 ml Syrup [Ventolin Syrup 2 mg/5 ml] 2 mg PO DAILY PRN PRN 10/26/22 [History] Calcium Carb, Citrate/Vit D3 [Calcium + D3 ER Tablet] 1 each PO DAILY 10/26/22 [History] Cyanocobalamin (Vitamin B-12) [Vitamin B-12] 1,000 mcg PO DAILY 10/26/22 [History] Lutein 6 mg PO DAILY 10/26/22 [History] Multivitamin 1 each PO DAILY 10/26/22 [History] Potassium Gluconate [Potassium] 99 mg PO DAILY 10/26/22 [History] Fluticasone/Umeclidin/Vilanter [Trelegy Ellipta 100-62.5-25] 1 each IH DAILY 05/12/24 [History] Hx Tetanus, Diphtheria Vaccination/Date Given: No Hx Influenza Vaccination/Date Given: Yes Hx Pneumococcal Vaccination/Date Given: Yes Travel Risk - International Travel Have you traveled outside of the country in past 3 weeks: No - Emerging Infectious Disease Are you exhibiting symptoms associated with any current EIDs: No - Review of Systems Constitutional: Fever, Chills, Fatigue Eyes: No Symptoms Ears, Nose, & Throat: No Symptoms Respiratory: Cough, Dyspnea on Exertion (BALES) Cardiac: No Symptoms Abdominal/Gastrointestinal: No Symptoms Genitourinary Symptoms: No Symptoms Musculoskeletal: No Symptoms Neurological: No Symptoms Psychological: No Symptoms Endocrine: No Symptoms Hematologic/Lymphatic: No Symptoms Immunological/Allergic: No Symptoms All Other Systems: Reviewed and Negative - Past Medical History Pertinent Past Medical History: Yes Neurological History: No Pertinent History ENT History: No Pertinent History Cardiac History: High Cholesterol, Hypertension, Other Respiratory History: Other Endocrine Medical History: No Pertinent History Musculoskeletal History: Osteoarthritis, Osteoporosis, Rheumatoid Arthritis GI Medical History: Hernia, Other History: No Pertinent History Psycho-Social History: No Pertinent History Female Reproductive Disorders: No Pertinent History Other Medical History: HX FX RIGHT WRIST WITH SURGERY TO REMOVE FRAGMENTS 12 YEARS AGO. SX HX: HYSTERECTOMY, CHOLECYSTECTOMY, RECTOCELE/CYSTOCELE RECONSTRUCTION, APPENDECTOMY. Pulmonary fibrosis. - Past Surgical History Past Surgical History: Yes Neuro Surgical History: No Pertinent History Cardiac: No Pertinent History Respiratory: Other Gastrointestinal: Appendectomy, Cholecystectomy, Other Genitourinary: Other Musculoskeletal: Orthopedic Surgery Female Surgical History: Hysterectomy Other Surgical History: right wrist surgery, rectocele, cystocele,lung surgery,shoulder replacement Significant Family History: no pertinent family hx - Social History Smoking Status: Never smoker Exposure to second hand smoke: No Drug Use: none - Social Determinants of Health Will the patient participate in the screening: Yes Do you worry about a steady place to live?: No Do you have any problems with any of the following?: No known problems In the past 12 months,have you had to go without utilities?: No Transportation Issues: No Has anyone in your support network made you feel unsafe?: No Have you or anyone in your house had to go w/o enough food: No - Nursing Vital Signs Nursing Vital Signs: Initial Vital Signs Temperature 98.9 F 11/04/24 10:15 Pulse Rate 79 11/04/24 10:15 Respiratory Rate 28 H 11/04/24 10:15 O2 Sat by Pulse Oximetry 97 11/04/24 10:15 Pain Scale Pain Intensity 6 - Physical Exam General Appearance: no apparent distress Eye Exam: PERRL/EOMI Ears, Nose, Throat Exam: normal ENT inspection Neck Exam: normal inspection Respiratory Exam: diminished breath sounds, other (Coarse bilaterally), No rhonchi, No wheezing Cardiovascular Exam: regular rate/rhythm, normal heart sounds, normal peripheral pulses Gastrointestinal/Abdomen Exam: soft, normal bowel sounds Neurologic Exam: alert, oriented x 3, cooperative Skin Exam: normal color, warm, dry SpO2: 97 - Course Nursing assessment & vital signs reviewed: Yes EKG Interpreted by Me: RATE, NORMAL INTERVALS, NORMAL QRS, Left Bundle Branch Block (Partial) Ordered Tests: Active Orders 24 hr Category Date Time Status CHEST 1 VIEW (PORTABLE) Stat Exams 11/04/24 10:45 Completed BLOOD CULTURE Stat Lab 11/04/24 11:15 Received CBC W DIFF Stat Lab 11/04/24 10:35 Completed CMP Stat Lab 11/04/24 10:35 Completed Lactic Acid Stat Lab 11/04/24 10:46 Completed VENOUS BLOOD GAS Stat Lab 11/04/24 10:46 Completed Lab/Rad Data: Laboratory Result Diagrams 11/04/24 10:35 11/04/24 10:35 Laboratory Results 11/04/24 11/04/24 11/04/24 Range/Units 11:20 10:46 10:35 WBC (3.98-10.04) x10^3/uL RBC (3.93-5.22) x10^6/uL Hgb (11.2-15.7) g/dL Hct (34.1-44.9) % MCV (79.4-94.8) fL MCH (25.6-32.2) pg MCHC (32.2-35.5) g/dL RDW (11.7-14.4) % Plt Count (182-369) x10^3/uL MPV (9.4-12.3) fL Gran % (34.0-71.1) % Immature Gran % (Auto) (0.001-0.429) % Nucleat RBC Rel Count (0.00-0.2) % Eos # (Auto) (0.04-0.36) x10^3/uL Immature Gran # (Auto) (0.001-0.031) x10^3u/L Absolute Lymphs (auto) (1.18-3.74) x10^3/uL Absolute Monos (auto) (0.24-0.86) x10^3/uL Absolute Nucleated RBC (0.00-0.012) x10^3u/L Lymphocytes % (19.3-51.7) % Monocytes % (4.7-12.5) % Eosinophils % (0.7-5.8) % Basophils % (0.1-1.2) % Absolute Granulocytes (1.56-6.13) x10^3/uL Basophils # (0.01-0.08) x10^3/uL pO2/FiO2 Ratio 21.0 % VBG pH 7.47 H (7.32-7.42) VBG pCO2 at Pat Temp 37 L (42-55) mm/Hg VBG pO2 at Pat Temp 150 H (25-40) mm/Hg VBG HCO3 26.9 (22-28) meq/L VBG O2 Sat (Malini) 97.3 (95-100) VBG Base Excess 3.2 H (-2.0-2.0) VBG Hemoglobin 13.2 VBG Carboxyhemoglobin 2.7 (0.0-6.9) % T HGB POC Potassium 3.5 (3.5-5.1) Sodium 137 (135-145) mmol/L Potassium 3.3 L (3.5-5.1) mmol/L Chloride 106 (98-107) mmol/L Carbon Dioxide 25 (22-30) mmol/L Anion Gap 9.5 (5-15) MEQ/L BUN 23 H (7-17) mg/dL Creatinine 0.64 (0.52-1.04) mg/dL Estimated GFR 92.1 ML/MIN Glucose 109 H (74-106) mg/dL Lactic Acid 0.8 (0.4-2.0) Calcium 9.7 (8.4-10.2) mg/dL Total Bilirubin 1.00 (0.2-1.3) mg/dL AST 54 H (14-36) U/L ALT 51 H (0-35) U/L Alkaline Phosphatase 99 (38-126) U/L Serum Total Protein 6.8 (6.3-8.2) g/dL Albumin 3.6 (3.5-5.0) g/dL Influenza Type A Ag NEGATIVE (NEGATIVE) Influenza Type B Ag NEGATIVE (NEGATIVE) RSV (PCR) NEGATIVE (NEGATIVE) SARS-CoV-2 (PCR) NEGATIVE (NEGATIVE) 11/04/24 Range/Units 10:35 WBC 9.7 (3.98-10.04) x10^3/uL RBC 4.36 (3.93-5.22) x10^6/uL Hgb 13.0 (11.2-15.7) g/dL Hct 39.0 (34.1-44.9) % MCV 89.4 (79.4-94.8) fL MCH 29.8 (25.6-32.2) pg MCHC 33.3 (32.2-35.5) g/dL RDW 14.0 (11.7-14.4) % Plt Count 142 L (182-369) x10^3/uL MPV 10.8 (9.4-12.3) fL Gran % 74.2 H (34.0-71.1) % Immature Gran % (Auto) 0.3 (0.001-0.429) % Nucleat RBC Rel Count 0.0 (0.00-0.2) % Eos # (Auto) 0.25 (0.04-0.36) x10^3/uL Immature Gran # (Auto) 0.03 (0.001-0.031) x10^3u/L Absolute Lymphs (auto) 0.94 L (1.18-3.74) x10^3/uL Absolute Monos (auto) 1.24 H (0.24-0.86) x10^3/uL Absolute Nucleated RBC 0.00 (0.00-0.012) x10^3u/L Lymphocytes % 9.7 L (19.3-51.7) % Monocytes % 12.7 H (4.7-12.5) % Eosinophils % 2.6 (0.7-5.8) % Basophils % 0.5 (0.1-1.2) % Absolute Granulocytes 7.23 H (1.56-6.13) x10^3/uL Basophils # 0.05 (0.01-0.08) x10^3/uL pO2/FiO2 Ratio % VBG pH (7.32-7.42) VBG pCO2 at Pat Temp (42-55) mm/Hg VBG pO2 at Pat Temp (25-40) mm/Hg VBG HCO3 (22-28) meq/L VBG O2 Sat (Malini) (95-100) VBG Base Excess (-2.0-2.0) VBG Hemoglobin VBG Carboxyhemoglobin (0.0-6.9) % T HGB POC Potassium (3.5-5.1) Sodium (135-145) mmol/L Potassium (3.5-5.1) mmol/L Chloride (98-107) mmol/L Carbon Dioxide (22-30) mmol/L Anion Gap (5-15) MEQ/L BUN (7-17) mg/dL Creatinine (0.52-1.04) mg/dL Estimated GFR ML/MIN Glucose (74-106) mg/dL Lactic Acid (0.4-2.0) Calcium (8.4-10.2) mg/dL Total Bilirubin (0.2-1.3) mg/dL AST (14-36) U/L ALT (0-35) U/L Alkaline Phosphatase (38-126) U/L Serum Total Protein (6.3-8.2) g/dL Albumin (3.5-5.0) g/dL Influenza Type A Ag (NEGATIVE) Influenza Type B Ag (NEGATIVE) RSV (PCR) (NEGATIVE) SARS-CoV-2 (PCR) (NEGATIVE) - Progress Progress: unchanged Air Movement: good Progress Note: Patient was stable throughout stay. She was requiring some oxygen. She did not have any chest pain or any cardiac symptoms. Her flu RSV and COVID were all negative. Her chest x-ray was clear. I think that she probably has an upper respiratory infection and because of her pulmonary fibrosis she is requiring some oxygen. I spoke with our hospitalist about that. They suggested we try to get home O2 on a temporary basis for her. We got her home O2 set up. I went to discharge her to home and she can follow-up in a day or 2 or return if symptoms worsen 11/04/24 12:38 11/04/24 14:21 Medical Desision Making - Independent Historian Additional History obtained from: Spouse - Departure Departure Disposition: Home Clinical Impression: Upper respiratory infection Condition: Stable Critical Care Time: No Referrals: DOMINIC VALDEZ DO [Primary Care Provider, [facility]] - Follow up/PCP as directed Instructions: Oxygen therapy at home, Shortness of Breath (Dyspnea) (DC) Additional Instructions: WEAR 2L/NC AT ALL TIMES AT HOME CALL [facility] AT [phone] WHEN YOU LEAVE [facility] SO THEY CAN DELIVER YOUR HOME HOME OXYGEN CONCENTRATOR
--- NOTE | 2024-11-04 11:06 | XRAY ---
Indication: Dyspnea. Comparison: September 11, 2023 Portable chest again demonstrates CT proven diffuse pulmonary fibrosis/scarring and small right base calcified granuloma. Remaining heart and lungs unremarkable. Bony thorax intact again with osteopenia, degenerative changes, and right shoulder arthroplasty. Impression: Continue nonacute chest with chronic features.
[2024-11-04 11:23] LABS: BASOPHIL % 0.5 % (0.1-1.2); Basophil (Absolute #) 0.05 x10^3/uL (0.01-0.08); Eosinophil (Absolute #) 0.25 x10^3/uL (0.04-0.36); Hematocrit 39.0 % (34.1-44.9); Hemoglobin 13.0 g/dL (11.2-15.7); IMMATURE GRAN # 0.03 x10^3u/L (0.001-0.031); IMMATURE GRAN % 0.3 % (0.001-0.429); Lymphocyte (Absolute #) 0.94 x10^3/uL (1.18-3.74); Mean Corpuscular Hemoglobin 29.8 pg (25.6-32.2); Mean Corpuscular Hgb Concent. 33.3 g/dL (32.2-35.5); Monocyte (Absolute #) 1.24 x10^3/uL (0.24-0.86); NUCLEATED RBC # 0.00 x10^3u/L (0.00-0.012); NUCLEATED RBC % 0.0 % (0.00-0.2); Platelet Count 142 x10^3/uL (182-369); Red Blood Count 4.36 x10^6/uL (3.93-5.22); White Blood Count 9.7 x10^3/uL (3.98-10.04)
[2024-11-04 11:43] LABS: Calcium 9.7 mg/dL (8.4-10.2); Carbon Dioxide 25.0 mmol/L (22-30); Creatinine 1 0.64 mg/dL (0.52-1.04); EST GLOMERULAR FILTRATION RATE 92.1 ML/MIN; Glucose 109.0 mg/dL (74-106); Potassium 3.3 mmol/L (3.5-5.1); SGOT/AST 54.0 U/L (14-36); SGPT/ALT 51.0 U/L (0-35); Total Protein 6.8 g/dL (6.3-8.2)
[2024-11-04 11:59] LABS: INFLUENZA A NEGATIVE (NEGATIVE); INFLUENZA B NEGATIVE (NEGATIVE); RESPIRATORY SYNCTIAL VIRUS NEGATIVE (NEGATIVE); SARS-CoV-2 Xpert Express NEGATIVE (NEGATIVE)
[2024-11-04 14:46] VITALS: BP 138/76; PULSE 78; RESP 18; O2SAT 98
== END 2024-11-04 14:46 | disposition home or self-care (01) ==
LOC: ED 10:15
DX: J06.9 Acute upper respiratory infection, unspecified (principal); R50.9 Fever, unspecified; R05.1 Acute cough; R06.02 Shortness of breath; I10 Essential (primary) hypertension; Z79.899 Other long term (current) drug therapy